=== PATIENT | male | born 1930 | race Caucasian/White ===

== ENCOUNTER → 2017-06-06 | Outpatient (CLI) | payer MEDICARE, OTHER ==
[~2017-06-06] MED LIST: ALBU8I INH; AMIL5 PO; ARIC5TAB PO; BIOT10004 PO; CARV25TA PO; CEFU1TAB43 PO; FERRF325 PO; FOLI5CAP PO; FURO40TA PO; GLIM2TAB PO; GLUCTAB PO; INDO75CA PO; LEVO150T7 PO; MAGN500C PO; NITR0.4S SL; OYST500T77 PO; POTA10TA2 PO; PRED5SOL PO; RIVA20 PO; SIMV20 PO; SOMA350T PO; ULTR50TA PO; VITA200017 PO; ZOLP10TA3 PO
[2017-06-06 10:10] LABS: HEMATOCRIT 42.7 % (39.0-51.0); HEMOGLOBIN 14.2 GM/DL (13.0-17.0); MEAN CELL VOLUME 101.4 FL (80.0-100.0); MEAN CORPUSCULAR HEMOGLOBIN 33.7 PG (27.0-34.0); MEAN CORPUSCULAR HGB CONC 33.2 % (32.0-36.0); MEAN PLATELET VOLUME 9.6 FL (7.0-11.0); PLATELET COUNT 137 TH/MM3 (150-450); RED BLOOD COUNT 4.21 MIL/MM3 (4.50-5.90); RED CELL DISTRIBUTION WIDTH 17.6 % (11.6-17.2); WHITE BLOOD COUNT 10.3 TH/MM3 (4.0-11.0)
[2017-06-06 10:33] LABS: BICARBONATE 41.5 MEQ/L (21.0-32.0); CREATININE 1.69 MG/DL (0.60-1.30)
== END ==
LOC: CLAB 09:28
PROVIDERS: ATTEND Internal Medicine Interventional Cardiology
DX: I50.32 Chronic diastolic (congestive) heart failure (principal); I35.0 Nonrheumatic aortic (valve) stenosis; R60.0 Localized edema; I34.0 Nonrheumatic mitral (valve) insufficiency; I48.2 Chronic atrial fibrillation; R53.83 Other fatigue; Z79.01 Long term (current) use of anticoagulants; Z79.899 Other long term (current) drug therapy
CPT/HCPCS: 36415; 80048; 84443; 85027